=== PATIENT | female | born 1975 | race Hispanic/Latino ===

== ENCOUNTER 2025-02-01 13:22 | Emergency (ER) | payer MEDICAID, SELFPAY ==
[2025-02-01] VITALS (29 sets, daily range): BP systolic 103–136; BP diastolic 59–79; PULSE 74–101; RESP 16–32; TEMP 36.5–36.6; O2SAT 97–100; BMI 27.5
--- NOTE | 2025-02-01 13:25 | DI.RAD.S_ITS ---
PROCEDURE: XR CHEST 1V INDICATIONS: Chest Pain TECHNIQUE: One view of the chest was acquired. COMPARISON: [facility], , CHEST 2 VIEW, 03/03/2016, 11:36. FINDINGS: Surgical changes and devices: None. Lungs and pleura: Left retrocardiac airspace opacity. Questionable left pleural effusion. No pneumothorax. Mediastinum: Mediastinal contours appear normal. Heart size is enlarged. Bones and chest wall: No suspicious bony lesions. Overlying soft tissues appear unremarkable. Left intramedullary nail of the humerus. IMPRESSION: Retrocardiac opacity concerning for pneumonia. Cardiomegaly. Dictated by: Joshua Cox M.D. on 02/01/2025 at 13:29 Approved by: Joshua Cox M.D. on 02/01/2025 at 13:31
--- NOTE | 2025-02-01 13:25 | EKG_ITS ---
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
[2025-02-01 13:44] LABS: Add Manual Diff / Slide Review NO; Basophils Absolute Auto 100 /uL (0-100); Basophils Percent Auto 1.3 % (0-2); Eosinophils Absolute Auto 0 /uL (0-450); Eosinophils Percent Auto 0.2 % (2-4); Lymphocytes Absolute Auto 1800 /uL (1100-4500); Lymphocytes Percent Auto 20.9 % (25-40); Mean Corpuscular HGB Conc 32.8 % (30-36); Mean Corpuscular Volume 73.2 fL (80-100); Monocytes Absolute Auto 500 /uL (0-900); Monocytes Percent Auto 5.9 % (3-14); Neutrophils Absolute Auto 6200 /uL (1500-7000); Neutrophils Percent Auto 71.7 % (50-75); Platelet Count 493 X10^3/uL (150-400); Red Cell Distribution Width 22.9 % (11.6-14.8); White Blood Cell Count 8.7 X10^3/uL (4.5-11.0)
[2025-02-01 13:50] LABS: INR 1.1 (0.9-1.3); Prothrombin Time 12.1 SECONDS (9.4-12.5)
[2025-02-01 13:51] LABS: Hematocrit 19.7 % (36-46); Hemoglobin 6.5 g/dL (12.0-16.0)
[2025-02-01 13:52] LABS: Lactate (Lactic Acid) 1.2 mmol/L (0.7-2.1); PTT Partial Thromboplastin Tim 28 SECONDS (25.1-36.5)
[2025-02-01 13:53] LABS: Alanine Aminotransferase 11 IU/L (<35); Albumin 2.5 g/dL (3.5-5.0); Albumin Globulin Ratio 0.7 (1.0-2.8); Alkaline Phosphatase 103 U/L (38-126); Aspartate Aminotransferase 22 IU/L (14-36); BUN Creatinine Ratio 22.7 (6-22); Bilirubin Total 0.9 mg/dL (0.2-1.3); Blood Urea Nitrogen 34 mg/dL (7-17); Carbon Dioxide 23 mmol/L (22-32); Chloride 100 mmol/L (98-107); Creatine Kinase < 20 U/L (30-135); Estimated Glomerular Filt Rate 43 mL/min (>60); Globulin 3.5 g/dL (1.7-4.1); Glucose 236 mg/dL (70-99); Lipase 165 U/L (23-300); Magnesium 1.5 mg/dL (1.6-2.3); Potassium 4.8 mmol/L (3.4-5.1); Sodium 130 mmol/L (137-145)
[2025-02-01 14:03] LABS: HEMOLYSIS 51 (0-50)
[2025-02-01 14:05] LABS: NT-proBNP (BNP-Adult 18+) 8330 pg/mL (<125); Troponin I < 0.012 ng/mL (0.01-0.034)
--- NOTE | 2025-02-01 14:16 | PC.NURSE ---
Addendum entered by Cinthia Bobby R.N. 02/01/25 14:21: Lips pale. Original Note: Pt reports 3 days of CP and palpitations. Pt reports the CP started when she was sitting. Pt reports she was in [place] when was had high blood pressure and they wanted to do a catheritization; however due to pt only having one kidney/poor kidney function they decided to withhold. Pt reports she was first diagnosed with kidney cancer in 2016. Pt reports cancer has metastasized to liver and pancreas. Pt is on insulin to treat diabetes. Pt states she has had no known fevers. Pt reports history of 5 blood transfusions. Pt states she is waiting to be treated w/ immunotherapy. Reported increased weakness at home. Pt has been using wheelchair at home. Denies upper back pain. Family and Major [employer] #[id number]
--- NOTE | 2025-02-01 14:20 | ED.CHESTPAIN ---
HPI - Chest Pain General Chief Complaint: Chest Pain Stated Complaint: Chest Pain Time Seen by Provider: 02/01/25 13:53 History of Present Illness HPI narrative: Patient is a 49-year-old female speaking but has family for interpretive interpretive services were offered but declined. Presenting today with left-sided chest. Patient has significant history of metastatic clear cell renal carcinoma. Initially diagnosed in 2016 has had a left humerus replacement due to metastatic disease as well as a left nephrectomy. She has had intermittent follow up over that time living in both [place] and [place]. Presenting today with left-sided chest pain and shortness of breath. She was previously admitted to [facility] January 06 through January 13. During that time she was found to be in DKA placed on an insulin drip. She was found to have extensive metastatic disease throughout abdominal wall muscles peritoneum and pancreatic tail. Oncology was consulted given extensive metastatic disease and microcytic anemia requiring blood transfusion patient is to begin immunotherapy however currently waiting insurance approval Patient reports that today she had some left-sided chest pain no significant shortness of breath. She has had progressive ongoing weakness which family says is getting even worse. She denies any significant shortness of breath. No significant abdominal pain nausea vomiting or other symptoms. She does have some lower extremity edema which family notes as well. Related Data Allergies Allergy/AdvReac Type Severity Reaction Status Date / Time No Known Drug Allergies Allergy Verified 02/01/25 14:11 Exam Initial Vital Signs Initial Vital Signs: Vital Signs Pulse Rate 94 H 02/01/25 13:26 Pulse Oximetry 100 02/01/25 13:26 GENERAL: Pale alert 49-year-old female and in no acute distress. HEENT: Head atraumatic,EOMI, pupils reactive, face symmetric, moist mucous membranes CARDIOVASCULAR: Regular rate and rhythm without murmurs, rubs or gallops. RESPIRATORY: Breath sounds equal bilaterally, no wheezes rales or rhonchi. ABDOMEN: Soft, nontender. Normoactive bowel sounds all 4 quadrants. No guarding or rebound. : No CVA tenderness EXTREMITIES: Normal range of motion, no clubbing or edema. Neurovascularly intact NEUROLOGICAL: Alert and oriented x4.Normal gait and speech. Cranial nerves II through XII grossly intact. SKIN: Warm, dry, no laceration, no petechiae, no rashes or lesions. Procedures [facility] [place] Name of Procedure: Thoracentesis, therapeutic and diagnostic Location: Left side Technique/Description of procedure performed: Thoracentesis Indication: Large left pleural effusion Consent signed A time-out was completed verifying correct patient, procedure, site, positioning, and special equipment if applicable. The patient?s left side was prepped and draped in a sterile manner after the appropriate infiltration level was confirmed by ultrasound. 1% lidocaine was used anesthetize the surrounding skin. A finder needle was then used to locate fluid and clear yellow fluid was obtained. A 18 gauge needle used to make larger hole. The thoracentesis catheter was then threaded without difficulty. The patient had 700 of bloody serosanguineous fluid removed.A post-procedure chest x-ray was ordered and the fluid will be sent for several studies. Estimated Blood Loss: 0 The patient tolerated the procedure well and there were no complications. Patient tolerated procedure: Well and No complications Course Orders Ordered: ED Orders 02/01/25 13:25 XR chest 1V Stat EKG-12 Lead Stat RT Consult Eval and Treat NOW 02/01/25 13:30 Complete Blood Count AUTO DIFF Stat Comprehensive Metabolic Panel Stat Lactate (Lactic Acid) Stat Lipase Stat Magnesium Stat NT-proBNP (BNP-Adult 18+) Stat PTT Partial Thromboplastin Rajesh Stat Prothrombin Time INR Stat Troponin & CK Cardiac Panel Stat 02/01/25 14:09 PRBC [Packed Cells] Stat Type and Screen Stat 02/01/25 14:37 CT abdomen pelvis w con Stat CT angio chest PE protocol Stat 02/01/25 15:32 US chest Stat XR chest 1V Stat 02/01/25 17:33 Body Fluid Culture Urgent Cell Count w Diff Body Fluid Urgent Discontinued Medications Lidocaine/Epinephrine (Lidocaine 1% W/Epi 10ml) 1 ml SUBCUT NOW ONE Stop: 02/01/25 16:51 Last Admin: 02/01/25 17:46 Dose: 1 ml Documented By: MYRON Vital Signs Vital signs: Vital Signs - 8 hr 02/01/25 13:26 02/01/25 13:27 02/01/25 13:27 Temperature Pulse Rate 94 H 93 H Respiratory Rate 17 Blood Pressure 117/65 Pulse Oximetry 100 99 Oxygen Delivery Method 02/01/25 13:30 02/01/25 13:30 02/01/25 14:00 Temperature 97.7 F Pulse Rate 74 94 H 92 H Respiratory Rate 16 19 Blood Pressure 117/65 Pulse Oximetry 97 99 100 Oxygen Delivery Method Room Air 02/01/25 14:30 02/01/25 15:11 02/01/25 15:26 Temperature 97.9 F Pulse Rate 91 H 94 H 90 Respiratory Rate 18 19 Blood Pressure 103/59 L Pulse Oximetry 100 99 Oxygen Delivery Method 02/01/25 15:26 02/01/25 15:26 02/01/25 15:30 Temperature Pulse Rate 90 Respiratory Rate 22 Blood Pressure 103/59 L 110/64 Pulse Oximetry 100 Oxygen Delivery Method 02/01/25 15:30 02/01/25 15:45 02/01/25 15:50 Temperature 97.8 F Pulse Rate 91 H 91 H Respiratory Rate 23 16 Blood Pressure 114/67 114/67 Pulse Oximetry 100 Oxygen Delivery Method 02/01/25 15:50 02/01/25 16:00 02/01/25 16:00 Temperature Pulse Rate 91 H 91 H Respiratory Rate 21 Blood Pressure 107/72 Pulse Oximetry 100 100 Oxygen Delivery Method 02/01/25 16:15 02/01/25 16:15 02/01/25 16:30 Temperature Pulse Rate 92 H 91 H Respiratory Rate 20 18 Blood Pressure 118/72 Pulse Oximetry 100 100 Oxygen Delivery Method 02/01/25 16:30 02/01/25 16:45 02/01/25 16:45 Temperature Pulse Rate 90 Respiratory Rate 26 H Blood Pressure 128/78 122/73 Pulse Oximetry 100 Oxygen Delivery Method 02/01/25 17:00 02/01/25 17:00 02/01/25 17:15 Temperature Pulse Rate 90 Respiratory Rate 27 H Blood Pressure 128/77 121/70 Pulse Oximetry 100 Oxygen Delivery Method 02/01/25 17:15 02/01/25 17:20 02/01/25 17:20 Temperature Pulse Rate 97 H 99 H Respiratory Rate 32 H 32 H Blood Pressure 119/74 Pulse Oximetry 99 100 Oxygen Delivery Method 02/01/25 17:25 02/01/25 17:25 02/01/25 17:30 Temperature Pulse Rate 101 H Respiratory Rate 23 Blood Pressure 120/71 124/74 Pulse Oximetry 100 Oxygen Delivery Method 02/01/25 17:30 02/01/25 17:35 02/01/25 17:35 Temperature Pulse Rate 97 H 97 H Respiratory Rate 24 Blood Pressure 112/71 Pulse Oximetry 100 99 Oxygen Delivery Method MDM - Chest Pain Lab Data 02/01/25 13:30 02/01/25 13:30 Labs: Lab Results 02/01/25 02/01/25 Range/Units 13:30 14:09 WBC 8.7 (4.5-11.0) X10^3/uL RBC 2.70 L (4.0-5.2) X10^6/uL Hgb 6.5 L* (12.0-16.0) g/dL Hct 19.7 L* (36-46) % MCV 73.2 L (80-100) fL MCH 24.0 L (26-34) PG MCHC 32.8 (30-36) % RDW 22.9 H (11.6-14.8) % Plt Count 493 H (150-400) X10^3/uL Neut % (Auto) 71.7 (50-75) % Lymph % (Auto) 20.9 L (25-40) % Iron % (Auto) 5.9 (3-14) % Eos % (Auto) 0.2 L (2-4) % Baso % (Auto) 1.3 (0-2) % Neut # (Auto) 6200 (8250-5122) /uL Lymph # (Auto) 1800 (0179-5125) /uL Iron # (Auto) 500 (0-900) /uL Eos # (Auto) 0 (0-450) /uL Baso # (Auto) 100 (0-100) /uL RBC Morphology See below Anisocytosis 1+ H Microcytosis 1+ H PT 12.1 (9.4-12.5) SECONDS INR 1.1 (0.9-1.3) APTT 28 (25.1-36.5) SECONDS Sodium 130 L (137-145) mmol/L Potassium 4.8 (3.4-5.1) mmol/L Chloride 100 (98-107) mmol/L Carbon Dioxide 23 (22-32) mmol/L BUN 34 H (7-17) mg/dL Creatinine 1.50 H (0.52-1.04) mg/dL Estimated GFR 43 L (>60) mL/min BUN/Creatinine Ratio 22.7 H (6-22) Glucose 236 H (70-99) mg/dL Lactate 1.2 (0.7-2.1) mmol/L Calcium 8.0 L (8.4-10.2) mg/dL Magnesium 1.5 L (1.6-2.3) mg/dL Total Bilirubin 0.9 (0.2-1.3) mg/dL AST 22 (14-36) IU/L ALT 11 (<35) IU/L Alkaline Phosphatase 103 (38-126) U/L Total Creatine Kinase < 20 L (30-135) U/L Troponin I < 0.012 (0.01-0.034) ng/mL NT-Pro-B Natriuret Pep 8330 H (<125) pg/mL Total Protein 6.0 L (6.3-8.2) g/dL Albumin 2.5 L (3.5-5.0) g/dL Globulin 3.5 (1.7-4.1) g/dL Albumin/Globulin Ratio 0.7 L (1.0-2.8) Lipase 165 (23-300) U/L Blood Type A Positive Antibody Screen Negative Crossmatch See Detail Imaging Data Chest x-ray: Radiologist's Impression: PROCEDURE: XR CHEST 1V INDICATIONS: Chest Pain TECHNIQUE: One view of the chest was acquired. COMPARISON: [facility], CHEST 2 VIEW, 03/03/2016, 11:36. FINDINGS: Surgical changes and devices: None. Lungs and pleura: Left retrocardiac airspace opacity. Questionable left pleural effusion. No pneumothorax. Mediastinum: Mediastinal contours appear normal. Heart size is enlarged. Bones and chest wall: No suspicious bony lesions. Overlying soft tissues appear unremarkable. Left intramedullary nail of the humerus. IMPRESSION: Retrocardiac opacity concerning for pneumonia. Cardiomegaly. Dictated by: Joshua Cox M.D. on 02/01/2025 at 13:29 Approved by: Joshua Cox M.D. on 02/01/2025 at 13:31 ECG Data Attestation: I personally reviewed and interpreted this ECG as follows: Prior ECG tracings: not available for review Interpretation: Sinus rhythm rate 92 MN interval 116 QRS [address] changes or T-wave inversion MDM Narrative Medical decision making narrative: MDM CC: Weakness chest pain Complicating co-morbidities: Metastatic renal cell carcinoma chronic anemia chronic kidney disease Data collected from: Family Medical records reviewed: [facility] admission discharge diagnosis Microcytic anemia hemoglobin 6.7 on admission MCV 72, thought that chronic renal disease is a large component was started on EPO as well KOKO on CKD had a creatinine of 2.0 BUN 59.9 which did improve during her admission Metastatic clear cell carcinoma evaluated by Oncology he was a candidate for immunotherapy nivolumab and ipilimumab Pseudo hyponatremia with a sodium of 122 corrected to 133 with hyperglycemia Ongoing weakness deconditioning thought to be secondary to malignancy Elevated lipase 506 Had DKA as well. Differential considered: Anemia mass pulmonary embolus ACS Exam documented above, pertinent findings include: Pale alert 49-year-old female very weak. Chest pain is nonreproducible lung sounds are clear abdomen is soft and nontender Lab Test results independently reviewed as above. Pertinent findings: Hemoglobin 6.5 hematocrit 19.7 Creatinine 1.5 Troponin negative, BNP 8330 Independently reviewed EKG as above No ischemia Imaging studies independently reviewed: Chest x-ray retrocardiac opacity concerning for pneumonia CT angio no pulmonary embolus progressing metastatic disease. Left basilar mass measuring 5.3 cm right apical nodule 2.3 cm with surrounding satellite nodules, large left pleural effusion small right pleural effusion CT abdomen pelvis metastatic disease involving lung pancreas psoas muscle gluteal soft tissues left rib mesenteric possible lymph nodes hepatomegaly splenomegaly moderate ascites Ultrasound area bah for thoracentesis Chest x-ray decreased pleural effusion without pneumothorax Treatments: 1 unit packed red blood cells, thoracentesis Re-evaluations: Patient had 700 cc of pleural fluid removed. It was sent for cytology and further evaluation. Discussion: Patient is a 49-year-old female who has metastatic clear cell carcinoma with chronic anemia presenting today with increasing weakness. She was found to be anemic again with a hemoglobin of 6.5 and hematocrit of 19.7. According to previous notes the goal is to have hemoglobin greater than 7. She was transfused 1 unit of packed red blood cells. She also has a new left-sided pleural effusion. She is not hypotensive or hypoxic. However thoracentesis is done fluid sent for cytology and evaluation presumed metastatic and cancerous. She tolerated the procedure well. Patient has ongoing fatigue and weakness is likely secondary to chronic anemia and cancer. No evidence of infection. Discussion with patient and family if she wants to be admitted to the hospital versus going home. At this time patient would like to go home. Recommend outpatient follow-up with Oncology. Cause of left-sided chest pain is likely secondary to malignancy. Possible pleural effusion versus lung mass versus metastatic disease to the ribs. I think much less likely related to ACS. Discharge Plan Departure Patient Disposition: Home Clinical Impression: Anemia, Pleural effusion, Metastatic clear cell carcinoma of kidney Instructions: Pleural Effusion Activity Restrictions/Additional Instructions: *You have been diagnosed with left pleural effusion *What to do: At this time you have fluid on your lung it was likely related to a cancer. You are also anemic he received 1 unit of blood today. Please call Oncology tomorrow to schedule for follow-up will need repeat blood work *Continue to take medications as directed *Follow up with your primary care provider in 2-3 days or call [phone] Genao office tomorrow *Return to ER if you should have increasing chest pain shortness of breath [or] any new, worsening or concerning symptoms Referrals: Gregorio Beckwith MD [Primary Care Provider] - Cuauhtemoc Genao MD [Physician] - Stand Alone Forms: Patient Portal/API/Survey
[2025-02-01 14:28] LABS: Anisocytosis 1+; Microcytosis 1+
--- NOTE | 2025-02-01 14:37 | DI.CT.S_ITS ---
PROCEDURE: CT ANGIO CHEST PE PROTOCOL INDICATIONS: chest pain, with metastatic renal cell CA TECHNIQUE: After the administration of intravenous contrast, 2 mm thick sections acquired from the pulmonary apices to the posterior costophrenic angles. 3-dimensional maximum intensity projection (MIP) coronal and sagittal reformats were then acquired through the thorax. For radiation dose reduction, the following was used: automated exposure control, adjustment of mA and/or kV according to patient size. COMPARISON: [facility], CT, CT ANGIO CHEST PE, 01/06/2025, 3:00. FINDINGS: Image quality: Diagnostic. Pulmonary arteries: Pulmonary arteries are normal in size, and demonstrate no intraluminal filling defects to suggest central pulmonary embolism. Lower Neck: No enlarged lymph nodes. Thyroid: No thyroid nodules which require sonographic follow up, per consensus guidelines. Axillae: No enlarged lymph nodes. Chest Wall: Left chest wall mass involving the 9th rib measuring 7.3 cm. Left flank superficial soft tissue mass measuring 1.3 cm axial image 82. . Lungs and Pleura: No pneumothorax or pleural effusions. Left basilar mass measuring 5.3 cm.. Right apical nodule measuring 2.3 cm. With surrounding satellite nodules. Large left effusion. Small right effusion. Heart: Heart size is normal. No pericardial effusion. Thoracic Vessels: No aortic aneurysm. Mediastinum and Brissa: Left hilar lymphadenopathy. Esophagus: No wall thickening. No hiatal hernia. Upper Abdomen: See separate CT for abdominal evaluation. IMPRESSION: No pulmonary embolus. Progressing metastatic disease. Dictated by: Joshua Cox M.D. on 02/01/2025 at 15:24 Approved by: Joshua Cox M.D. on 02/01/2025 at 15:31
--- NOTE | 2025-02-01 14:37 | DI.CT.S_ITS ---
PROCEDURE: CT ABDOMEN PELVIS W CON INDICATIONS: Metastatic renal cell carcinoma TECHNIQUE: After the administration of intravenous contrast, axial sections acquired from the lung bases to the pubic symphysis. Coronal and sagittal reformats were performed. For radiation dose reduction, the following was used: automated exposure control, adjustment of mA and/or kV according to patient size. COMPARISON: [facility], CT, CT ABDOMEN PELVIS WITH CONTRAST, 01/06/2025, 3:00. FINDINGS: Image quality: Diagnostic. Lower Chest: Partially imaged left lower lobe heterogeneous mass measuring 6.8 cm with surrounding pleural effusion. Left chest wall mass involving the 9th rib measuring 7.7 cm. ABDOMEN: Liver: No solid mass. Hepatomegaly Gallbladder: Innumerable gallstones. Biliary ducts: No biliary dilation. Pancreas: No ductal dilation. The tail of the pancreas is invaded by a large mass measuring 6.1 x 6 x 7.4 cm Spleen: Splenomegaly. A few hypodensities Adrenal Glands: The right adrenal gland is not identified. Normal left adrenal gland Kidneys and Ureters: The right kidney is absent. Stomach and Bowel: No bowel obstruction. Peritoneum: Moderate ascites. Mild anasarca. Right mesenteric soft tissue mass measuring 2.5 cm Ventral Wall: No significant ventral hernia. Abdominal Nodes: A few prominent periaortic lymph nodes. Vessels: Aorta and inferior vena cava are normal in size. PELVIS: Pelvic Organs: Unremarkable. Bladder: Densities on the posterior wall of the bladder Pelvic Nodes: No enlarged lymph nodes. Miscellaneous: No inguinal hernias are seen. Bones: No aggressive osseous abnormality. Soft tissue: Left gluteal mass measuring 4.5 cm. Left psoas mass measuring 3.3 cm IMPRESSION: 1. Metastatic disease involving the lung, pancreas, psoas muscle, gluteal soft tissues, left ribs, mesenteric, and possible lymph nodes and possible lymph nodes. 2. Hepatomegaly and splenomegaly . 3. Moderate ascites. 4. Mild to moderate anasarca. Dictated by: Joshua Cox M.D. on 02/01/2025 at 15:09 Approved by: Joshua Cox M.D. on 02/01/2025 at 15:23
--- NOTE | 2025-02-01 15:32 | DI.RAD.S_ITS ---
PROCEDURE: XR CHEST 1V INDICATIONS: post-thoracentesis TECHNIQUE: One view of the chest was acquired. COMPARISON: [facility], CT, CT ANGIO CHEST PE PROTOCOL, 02/01/2025, 14:45. [facility], CR, XR CHEST 1V, 02/01/2025, 13:42. FINDINGS: Surgical changes and devices: None. Lungs and pleura: Improved aeration of the left lower lobe. Persistent retrocardiac opacity consistent with known pulmonary mass. Right a buccal mass is better seen on comparison CT. No pneumothorax. Mediastinum: Mediastinal contours appear normal. Heart size is normal. Bones and chest wall: No suspicious bony lesions. Overlying soft tissues appear unremarkable. IMPRESSION: Decreased left effusion without pneumothorax. Dictated by: Joshua Cox M.D. on 02/01/2025 at 16:58 Approved by: Joshua Cox M.D. on 02/01/2025 at 17:01
--- NOTE | 2025-02-01 15:32 | DI.US.S_ITS ---
PROCEDURE: US CHEST COMPARISON: [facility], CT, CT ANGIO CHEST PE PROTOCOL, 02/01/2025, 14:45. [facility], CT, CT ABDOMEN PELVIS W CON, 02/01/2025, 14:45. INDICATIONS: tatyana for thora FINDINGS: Beneath the area marked by the company secretary, there is a pleural effusion with the center of the fluid collection measuring 5.3 cm from the skin. IMPRESSION: Appropriate location for a left chest wall thoracentesis. Dictated by: Joshua Cox M.D. on 02/01/2025 at 16:18 Approved by: Joshua Cox M.D. on 02/01/2025 at 16:22
[2025-02-01] MEDS: LIDOCAINE 1% W/EPI 10ML SUBCUT (17:46)
[2025-02-01 18:14] LABS: Body Fluid Red Blood Cells 210609 /uL; Body Fluid Tot Nucleated Cells 560 /uL
[2025-02-01 18:19] LABS: Body Fluid Appearance TURBID; Body Fluid Clotted? NO CLOTS PRESENT; Body Fluid Color RED
--- NOTE | 2025-02-01 18:39 | PC.NURSE ---
More color to pt face. Pt states she breathes easier. Pt able to stand and walk a couple of feet. Pt reports improvement in symptoms.
[2025-02-01 18:45] LABS: Lymphocytes Body Fluid 79 %; MESO/MACRO/MONO Body Fluid 16 %; Neutrophils Body Fluid 5 %
== END 2025-02-01 18:42 | disposition home or self-care (01) ==
PROVIDERS: Emergency Provider Emergency Medicine; PCP Family Medicine
DX: C64.2 Malignant neoplasm of left kidney, except renal pelvis (principal); R07.9 Chest pain, unspecified; J90 Pleural effusion, not elsewhere classified; C79.9 Secondary malignant neoplasm of unspecified site; D63.0 Anemia in neoplastic disease; Z90.5 Acquired absence of kidney
CPT/HCPCS: 32555; 36415; 36430; 71045; 71275; 74177; 76604; 80053; 82550; 83605; 83690; 83735; 83880; 84484; 85025; 85610; 85730; 86850; 86900; 86901; 87070; 87075; 87205; 89051; 93005; 93010; 99284; 99285; P9016; Q9967

== ENCOUNTER 2025-02-05 02:02 | Emergency (ER) | payer MEDICAID, SELFPAY ==
[2025-02-05] VITALS (13 sets, daily range): BP systolic 86–117; BP diastolic 56–68; PULSE 85–133; RESP 13–20; TEMP 36.7; O2SAT 98–100; BMI 23.3
--- NOTE | 2025-02-05 02:49 | DI.RAD.S_ITS ---
PROCEDURE: XR CHEST 1V INDICATIONS: suspected sepsis TECHNIQUE: One view of the chest was acquired. COMPARISON: [facility], CR, XR CHEST 1V, 02/01/2025, 17:26. FINDINGS: Surgical changes and devices: None. Lungs and pleura: Small left pleural effusion and left basilar atelectasis. No pneumothorax. Right lung is clear. Mediastinum: Mediastinal contours appear normal. Heart size is enlarged. Bones and chest wall: No suspicious bony lesions. Overlying soft tissues appear unremarkable. IMPRESSION: Small left pleural effusion with left basilar small infiltrate/atelectasis. No pneumothorax. Clinical correlation and follow-up is recommended. No discrepancies. Dictated by: Pradeep Jimenez M.D. on 02/05/2025 at 8:20 Approved by: Pradeep Jimenez M.D. on 02/05/2025 at 8:21
[2025-02-05] MEDS: SODIUM CHLORIDE 0.9% 1,000 ML 1000 ML IV ×2 (02:54→03:56)
[2025-02-05 03:05] LABS: Add Manual Diff / Slide Review NO; Basophils Absolute Auto 100 /uL (0-100); Basophils Percent Auto 0.7 % (0-2); Eosinophils Absolute Auto 0 /uL (0-450); Hemoglobin 7.9 g/dL (12.0-16.0); Lymphocytes Absolute Auto 1200 /uL (1100-4500); Lymphocytes Percent Auto 10.1 % (25-40); Mean Corpuscular HGB Conc 31.7 % (30-36); Mean Corpuscular Hemoglobin 24.6 PG (26-34); Mean Corpuscular Volume 77.5 fL (80-100); Monocytes Absolute Auto 800 /uL (0-900); Monocytes Percent Auto 6.6 % (3-14); Neutrophils Absolute Auto 9600 /uL (1500-7000); Neutrophils Percent Auto 82.6 % (50-75); Platelet Count 540 X10^3/uL (150-400); Red Blood Cell Count 3.22 X10^6/uL (4.0-5.2); Red Cell Distribution Width 23.5 % (11.6-14.8); White Blood Cell Count 11.6 X10^3/uL (4.5-11.0)
--- NOTE | 2025-02-05 03:08 | EKG_ITS ---
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
[2025-02-05 03:13] LABS: INR 1.1 (0.9-1.3); Prothrombin Time 11.9 SECONDS (9.4-12.5)
--- NOTE | 2025-02-05 03:14 | ED_ITS ---
HPI - Fever General Chief Complaint: Fever Stated Complaint: fever after chemo today Time Seen by Provider: 02/05/25 02:45 Source: family Mode of arrival: Wheelchair History of Present Illness HPI Narrative: 49-year-old female Vietnamese speaking, translation services offered, declined by patient with family translation at bedside. 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 Genao, awaiting Port-A-Cath placement, yesterday 02/04/2025 morning had 1st round of Opdivo chemotherapy. Subsequently last few hours patient feels feverish. She denies cough, shortness of breath, chest pain, new abdominal pain. No skin rashes. No painful or frequent urination. No vomiting. No headache. Related Data Previous Rx's Medication Instructions Recorded cefdinir 300 mg capsule 300 mg PO BID 10 days #20 caps 02/05/25 doxycycline hyclate 100 mg capsule 100 mg PO BID #20 caps 02/05/25 Allergies Allergy/AdvReac Type Severity Reaction Status Date / Time No Known Drug Allergies Allergy Verified 02/01/25 14:11 Exam Narrative Exam Narrative: GENERAL: Well-developed patient, in mild distress. HEAD: Atraumatic. Normocephalic. EYES: Pupils equal round and reactive. Extraocular motions intact. No scleral icterus. No injection or drainage. ENT: Nose without bleeding, purulent drainage. Throat without erythema, tonsillar hypertrophy or exudate. Airway patent. NECK: Trachea midline. Non tender CARDIOVASCULAR: Fast rate regular rhythm, without murmurs, gallops, or rubs. RESPIRATORY: Clear to auscultation. Breath sounds equal bilaterally. No wheezes, rales, or rhonchi. No chest wall Port-A-Cath obvious. GASTROINTESTINAL: Abdomen soft, non-tender, nondistended. Right mid upper quadrant horizontal well-healed scar, her previous right nephrectomy scar, no obvious incisional hernia. EXTREMITIES: No edema or joint tenderness. BACK: Nontender without deformity or crepitance. No flank tenderness. NEURO: AOx3. Motor functions grossly nonfocal SKIN: No rash or erythema of visible areas Initial Vital Signs Initial Vital Signs: Vital Signs Temperature 98.1 F 02/05/25 02:23 Pulse Rate 133 H 02/05/25 02:23 Respiratory Rate 16 05/08/25 02:23 Blood Pressure 101/57 L 02/05/25 02:23 Pulse Oximetry 98 02/05/25 02:23 Oxygen Delivery Method Room Air 02/05/25 02:23 Course Orders Ordered: Discontinued Medications Doxycycline Hyclate (Doxycycline Hyclate 100 Mg Tablet) 100 mg PO NOW ONE Stop: 02/05/25 03:37 Last Admin: 02/05/25 03:53 Dose: 100 mg Documented By: SHARA Sodium Chloride (Normal Saline 0.9%) 1,000 mls @ 1,000 mls/hr IV BOLUS ONE Stop: 02/05/25 03:48 Last Infusion: 02/05/25 04:04 Dose: Infused Documented By: Admin: 02/05/25 02:54 Dose: 1,000 mls/hr Documented By: SHARA Sodium Chloride (Normal Saline 0.9%) 1,000 mls @ 1,000 mls/hr IV BOLUS ONE Stop: 02/05/25 03:58 Last Infusion: 02/05/25 05:41 Dose: Infused Documented By: Admin: 02/05/25 03:56 Dose: 1,000 mls/hr Documented By: SHARA Ceftriaxone Sodium 1,000 mg/ (Sodium Chloride) 100 mls @ 200 mls/hr IV NOW ONE Stop: 02/05/25 03:37 Last Infusion: 02/05/25 04:49 Dose: Infused Documented By: Admin: 02/05/25 03:52 Dose: 200 mls/hr Documented By: SHARA Ondansetron HCl (Ondansetron 4 Mg/2 Ml Inj) 4 mg IV NOW PRN PRN Reason: Nausea And Vomiting Ondansetron HCl (Ondansetron 4 Mg Odt) 4 mg PO NOW PRN PRN Reason: Nausea And Vomiting Vital Signs Vital signs: Vital Signs - 8 hr 02/05/25 02:23 02/05/25 02:34 02/05/25 02:35 Temperature 98.1 F Pulse Rate 133 H 127 H 125 H Respiratory Rate 16 Blood Pressure 101/57 L Pulse Oximetry 98 99 99 Oxygen Delivery Method Room Air 02/05/25 02:35 02/05/25 02:40 02/05/25 02:40 Temperature Pulse Rate 120 H Respiratory Rate 18 Blood Pressure 90/57 L 86/56 L Pulse Oximetry 99 Oxygen Delivery Method 02/05/25 03:00 02/05/25 03:00 02/05/25 03:30 Temperature Pulse Rate 113 H Respiratory Rate Blood Pressure 89/57 L 98/59 L Pulse Oximetry 99 Oxygen Delivery Method 02/05/25 03:30 02/05/25 04:00 02/05/25 04:00 Temperature Pulse Rate 96 H 95 H Respiratory Rate 19 13 Blood Pressure 111/66 Pulse Oximetry 100 100 Oxygen Delivery Method 02/05/25 04:30 02/05/25 04:30 02/05/25 05:00 Temperature Pulse Rate 91 H Respiratory Rate 16 Blood Pressure 113/65 112/67 Pulse Oximetry 100 Oxygen Delivery Method 02/05/25 05:00 02/05/25 05:29 02/05/25 05:30 Temperature Pulse Rate 87 85 Respiratory Rate 15 16 Blood Pressure 117/68 Pulse Oximetry 100 100 Oxygen Delivery Method MDM - Fever Lab Data Attestation: I reviewed the patient's lab results. Lab results narrative: White blood cell count 87445, hemoglobin 7.9, platelets 540,000. Initial BUN/Cr = 33/1.89 increased from prior studies. IV fluids given, repeat BUN/Cr 32/1.78 some improvement. Alkaline phosphatase slight elevation, other liver functions normal. Procalcitonin elevated. Lactate 1.1 not elevated. 02/05/25 02:45 02/05/25 05:37 Labs: Lab Results 02/05/25 02/05/25 Range/Units 02:45 05:37 WBC 11.6 H (4.5-11.0) X10^3/uL RBC 3.22 L (4.0-5.2) X10^6/uL Hgb 7.9 L (12.0-16.0) g/dL Hct 25.0 L (36-46) % MCV 77.5 L D (80-100) fL MCH 24.6 L (26-34) PG MCHC 31.7 (30-36) % RDW 23.5 H (11.6-14.8) % Plt Count 540 H (150-400) X10^3/uL Neut % (Auto) 82.6 H (50-75) % Lymph % (Auto) 10.1 L (25-40) % [place] % (Auto) 6.6 (3-14) % Eos % (Auto) 0.0 L (2-4) % Baso % (Auto) 0.7 (0-2) % Neut # (Auto) 9600 H (9899-3188) /uL Lymph # (Auto) 1200 (4168-4381) /uL [place] # (Auto) 800 (0-900) /uL Eos # (Auto) 0 (0-450) /uL Baso # (Auto) 100 (0-100) /uL Platelet Estimate Increased on smear RBC Morphology See below Anisocytosis 2+ H Microcytosis 2+ H Ovalocytes 1+ H PT 11.9 (9.4-12.5) SECONDS INR 1.1 (0.9-1.3) APTT 28 (25.1-36.5) SECONDS Sodium 134 L 134 L (137-145) mmol/L Potassium 4.0 3.7 (3.4-5.1) mmol/L Chloride 104 106 (98-107) mmol/L Carbon Dioxide 16 L 18 L (22-32) mmol/L BUN 33 H 32 H (7-17) mg/dL Creatinine 1.89 H 1.78 H (0.52-1.04) mg/dL Estimated GFR 32 L 35 L (>60) mL/min BUN/Creatinine Ratio 17.5 18.0 (6-22) Glucose 201 H 188 H (70-99) mg/dL Lactate 1.1 (0.7-2.1) mmol/L Calcium 8.2 L 7.4 L (8.4-10.2) mg/dL Total Bilirubin 1.1 (0.2-1.3) mg/dL AST 26 (14-36) IU/L ALT 12 (<35) IU/L Alkaline Phosphatase 165 H D (38-126) U/L Total Creatine Kinase < 20 L (30-135) U/L Total Protein 6.3 (6.3-8.2) g/dL Albumin 2.7 L (3.5-5.0) g/dL Globulin 3.6 (1.7-4.1) g/dL Albumin/Globulin Ratio 0.8 L (1.0-2.8) Lipase 191 (23-300) U/L Procalcitonin 4.49 H (<0.5) ng/mL ECG Data Attestation: I personally reviewed and interpreted this ECG as follows: Interpretation: Sinus tachycardia with rate of 107, no obvious ST segment elevation or depression changes obvious. NJ 128, QRS 74, QTC 499. MDM Narrative Medical decision making narrative: 49-year-old female with history of diabetes mellitus, prior DKA, metastatic renal cancer stage IV, had 1st round of Opdivo chemotherapy yesterday morning, feeling feverish tonight, triage with fast heart rate, sinus tachycardia on monitor. Consider sepsis. Consider inflammatory reaction to her 1st round of chemotherapy. No anaphylactoid like findings on skin or lung exam. IV fluid bolus. Labs pending. Chest x-ray pending. Records review: Patient seen here in ED on 02/01/2025 for left-sided chest pain. Large left pleural effusion on exam/imaging, had left-sided thoracentesis, removal of 700 mL serosanguineous bloody fluid, no pneumothorax. Reference made to 02/01/2025 [facility] hospitalization, patient then had CT angio PE protocol negative, CT abdomen and pelvis showing metastatic disease. Patient had transfusion of blood 02/01/2025 1 unit packed red blood cell, 4 hemoglobin 6.5 noted. Patient discharged home. EKG today shows sinus tachycardia, no obvious ischemic changes. Chest x-ray today shows left pleural effusion and left lower lobe infiltrate. See tele radiology report. Blood cultures requested, white blood cell count 83742 not neutropenic, chest x- ray concerning for possible pneumonia, IV ceftriaxone, oral doxycycline. Blood pressure improved, heart rate normalized. Repeat basic metabolic panel shows some modest improvement in BUN/creatinine, still elevated, she has had 2 L of intravenous crystalloid, feels better, she does not want to stay any longer, she wants to go home now. Offered admission, declined. Offered further fluids/obs/Rx here in the ED, also declined. Advised to recheck her labs this Sunday. We will send prescription for oral antibiotics to her pharmacy, for pneumonia coverage, oral antibiotic cefdinir and doxycycline course. Discharged home per patient request. Discharge Plan Departure Patient Disposition: Home Clinical Impression: Pneumonia, Chest pain, KOKO (acute kidney injury), History of kidney cancer Activity Restrictions/Additional Instructions: History of metastatic kidney cancer, having just started 1st round of intravenous chemotherapy yesterday. Fast heart rate noted, with fever. Chest x-ray suspicious for left pleural effusion but smaller than previous study, also presence suspected of left lower lung pneumonia, per radiologist's report. IV antibiotics initiated for pneumonia. IV fluids given. Heart rate improved, blood pressure stable. Kidney function abnormal, likely acute kidney injury, improved some with IV fluids. We discussed further treatment as an inpatient admission, declined. We discussed further treatment in the emergency department, also declined. You felt better and wanted to go home. You were discharged home per request. Advised to continue further antibiotics by mouth, prescription antibiotics sent to your pharmacy. Take antibiotics as directed. Advised to recheck symptoms and your labs again with your regular doctor on Sunday. Return earlier to this/nearest emergency department for any change worsening symptoms or any concerns prior. Prescriptions: New cefdinir 300 mg capsule 300 mg PO BID 10 Days Qty: 20 0RF doxycycline hyclate 100 mg capsule 100 mg PO BID Qty: 20 0RF Referrals: Gregorio Beckwith MD [Primary Care Provider] - Stand Alone Forms: Patient Portal/API/Survey
[2025-02-05 03:15] LABS: PTT Partial Thromboplastin Tim 28 SECONDS (25.1-36.5)
[2025-02-05 03:33] LABS: Lactate (Lactic Acid) 1.1 mmol/L (0.7-2.1)
[2025-02-05 03:50] LABS: Anisocytosis 2+; Microcytosis 2+; Ovalocytes 1+; Platelet Estimate Increased on smear
[2025-02-05] MEDS: cefTRIAXone 1,000 MG in SODIUM CHLORIDE 0.9% 100 ML 200 MG IV (03:52)
[2025-02-05] MEDS: DOXYCYCLINE HYCLATE 100 MG TABLET PO (03:53)
[2025-02-05 04:06] LABS: Alanine Aminotransferase 12 IU/L (<35); Albumin 2.7 g/dL (3.5-5.0); Albumin Globulin Ratio 0.8 (1.0-2.8); Alkaline Phosphatase 165 U/L (38-126); Aspartate Aminotransferase 26 IU/L (14-36); BUN Creatinine Ratio 17.5 (6-22); Bilirubin Total 1.1 mg/dL (0.2-1.3); Blood Urea Nitrogen 33 mg/dL (7-17); Calcium 8.2 mg/dL (8.4-10.2); Carbon Dioxide 16 mmol/L (22-32); Chloride 104 mmol/L (98-107); Estimated Glomerular Filt Rate 32 mL/min (>60); Globulin 3.6 g/dL (1.7-4.1); Glucose 201 mg/dL (70-99); HEMOLYSIS 29 (0-50); Lipase 191 U/L (23-300); Sodium 134 mmol/L (137-145); Total Protein 6.3 g/dL (6.3-8.2)
[2025-02-05 04:23] LABS: Procalcitonin 4.49 ng/mL (<0.5)
[2025-02-05 04:42] LABS: Creatine Kinase < 20 U/L (30-135)
[2025-02-05 06:00] LABS: Blood Urea Nitrogen 32 mg/dL (7-17); Calcium 7.4 mg/dL (8.4-10.2); Carbon Dioxide 18 mmol/L (22-32); Chloride 106 mmol/L (98-107); Estimated Glomerular Filt Rate 35 mL/min (>60); Glucose 188 mg/dL (70-99); HEMOLYSIS < 15 (0-50); Potassium 3.7 mmol/L (3.4-5.1); Sodium 134 mmol/L (137-145)
== END 2025-02-05 07:01 | disposition home or self-care (01) ==
PROVIDERS: Emergency Provider Emergency Medicine; PCP Family Medicine
DX: J18.9 Pneumonia, unspecified organism (principal); R07.9 Chest pain, unspecified; N17.9 Acute kidney failure, unspecified; Z90.5 Acquired absence of kidney; R00.0 Tachycardia, unspecified; C78.02 Secondary malignant neoplasm of left lung; C78.01 Secondary malignant neoplasm of right lung; C78.89 Secondary malignant neoplasm of other digestive organs; Z85.528 Personal history of other malignant neoplasm of kidney
CPT/HCPCS: 36415; 71045; 80048; 80053; 82550; 83605; 83690; 84145; 85025; 85610; 85730; 87040; 93005; 93010; 96365; 99284; J0696

== ENCOUNTER 2025-02-12 | Emergency (ER) | payer MEDICAID, SELFPAY ==
[2025-02-12] VITALS (9 sets, daily range): BP systolic 103–119; BP diastolic 57–68; PULSE 97–108; RESP 17–26; TEMP 36.1; O2SAT 93–100; BMI 25.1
--- NOTE | 2025-02-12 00:07 | ED_ITS ---
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 Patient presents with family who is translating, did offer translation services but patient declined. States that she has been having shortness of breath over the past few days at time of evaluation by medics at home they state that they were unable to obtain the proper pulse ox therefore did place her on 4 L nasal cannula, at time of evaluation patient not requiring any supplemental oxygen, 100% on room air, not having any dyspnea, not in acute respiratory distress. She denies any other symptoms at this time. Patient does follow up with Dr. marshall at [facility] Related Data Previous Rx's Medication Instructions Recorded cefdinir 300 mg capsule 300 mg PO BID 10 days #20 caps 02/05/25 doxycycline hyclate 100 mg capsule 100 mg PO BID #20 caps 02/05/25 Allergies Allergy/AdvReac Type Severity Reaction Status Date / Time No Known Drug Allergies Allergy Verified 02/01/25 14:11 Review of Systems Review of Systems Narrative: General: Denies fever, chills, weight loss HEENT: Denies headache, eye drainage, eye irritation, head trauma, sore throat, voice change Cardiovascular: Denies any chest pain, palpitations, tachycardia Respiratory: Positive shortness of breath, denies cough wheeze stridor GI/: Denies any abdominal pain, nausea, vomiting, diarrhea, bright red blood per rectum, melanotic stools, urinary frequency, urinary retention, dysuria, hematuria MSK: Denies any joint pain, muscle pains, swelling Skin: Denies any rashes, lesions, discoloration Neuro: Denies any headache, lightheadedness, dizziness, fainting, weakness Psych: Denies SI/HI Patient History Social History Smoking Status: Never smoker Exam Narrative Exam Narrative: General: Cooperative, well-developed, not in acute distress HEENT: Normocephalic, atraumatic, PERRLA, normal sclera, eyelids normal Neck: Active full range of motion, atraumatic Chest: Normal to inspection, negative crepitus, no overlying erythema ecchymosis Respiratory: Patient requiring 4 L nasal cannula, Normal respiratory effort, not in acute respiratory distress, clear to auscultation bilaterally negative cough, wheeze, tachypnea, rhonchi, rales Cardiology: Regular rate rhythm negative gallop, murmur, rubs GI/: No tenderness to palpation, soft, non rigid, normal to inspection, exam deferred MSK: +1 pitting edema in the lower extremities, Full active range of motion in all 4 extremities, atraumatic, no tenderness to palpation of any bony prominences Skin: No rashes or lesions noted Neuro: Alert awake oriented x3, moves all 4 extremities spontaneously, cranial nerves intact, able to answer all questions appropriately follows commands appropriately Psych: Cooperative, negative suicidal or homicidal ideations Initial Vital Signs Initial Vital Signs: Vital Signs Pulse Rate 105 H 02/12/25 00:11 Respiratory Rate 24 02/12/25 00:11 Pulse Oximetry 100 02/12/25 00:11 Course Orders Ordered: ED Orders 02/12/25 00:10 XR chest 1V Stat EKG-12 Lead Stat 02/12/25 00:11 CT angio chest PE protocol Stat 02/12/25 00:40 Blood Culture Stat Complete Blood Count AUTO DIFF Stat Comprehensive Metabolic Panel Stat Lactate (Lactic Acid) Stat Lipase Stat MAG [Magnesium] Stat NT-proBNP (BNP-Adult 18+) Stat PTT Partial Thromboplastin Rajesh Stat Prothrombin Time INR Stat Respiratory Panel (Film Array) Stat Troponin & CK Cardiac Panel Stat Magnesium Sulfate (Magnesium Sulfate) 2 gm in 50 mls @ 25 mls/hr IV NOW ONE Stop: 02/12/25 03:13 Last Admin: 02/12/25 01:24 Dose: 25 mls/hr Discontinued Medications Sodium Chloride (Normal Saline 0.9%) 250 mls @ 500 mls/hr IV BOLUS ONE Stop: 02/12/25 00:38 Last Admin: 02/12/25 01:09 Dose: 500 mls/hr Documented By: JOHNATHON Vital Signs Vital signs: Vital Signs - 8 hr 02/12/25 00:11 02/12/25 00:13 02/12/25 00:13 Temperature Pulse Rate 105 H 105 H Respiratory Rate 24 25 H Blood Pressure 112/68 Pulse Oximetry 100 Oxygen Delivery Method 02/12/25 00:14 02/12/25 00:30 02/12/25 01:10 Temperature 97 F L Pulse Rate 105 H 104 H 108 H Respiratory Rate 26 H 24 22 Blood Pressure 109/60 Pulse Oximetry 98 99 Oxygen Delivery Method Room Air Room Air 02/12/25 01:11 02/12/25 01:11 02/12/25 01:30 Temperature Pulse Rate 100 H 98 H Respiratory Rate 21 17 Blood Pressure 119/62 Pulse Oximetry 93 Oxygen Delivery Method Room Air 02/12/25 01:30 Temperature Pulse Rate Respiratory Rate Blood Pressure 104/64 Pulse Oximetry Oxygen Delivery Method MDM - SOB/Dyspnea Differential Diagnosis Differential diagnosis: Likely congestive heart failure, community acquired pneumonia, pulmonary embolism and other (COVID, flu, electrolyte abnormality) Lab Data 02/12/25 00:40 02/12/25 01:25 Labs: Lab Results 02/12/25 02/12/25 Range/Units 00:40 01:25 WBC 11.0 (4.5-11.0) X10^3/uL RBC 3.27 L (4.0-5.2) X10^6/uL Hgb 8.1 L (12.0-16.0) g/dL Hct 25.3 L (36-46) % MCV 77.2 L (80-100) fL MCH 24.7 L (26-34) PG MCHC 32.0 (30-36) % RDW 23.9 H (11.6-14.8) % Plt Count 479 H (150-400) X10^3/uL Neut % (Auto) Not Reportable Lymph % (Auto) Not Reportable [place] % (Auto) Not Reportable Eos % (Auto) Not Reportable Baso % (Auto) Not Reportable Lymph # (Auto) Not Reportable [place] # (Auto) Not Reportable Baso # (Auto) Not Reportable Total Counted 100 Seg Neutrophils % 76.0 H (38-70) % Lymphocytes % (Manual) 20.0 L (25-45) % Monocytes % (Manual) 4.0 (2-11) % Neutrophils # (Manual) 8360 H (2848-1294) /uL RBC Morphology See below Hypochromasia 1+ H Anisocytosis 2+ H Microcytosis 1+ H PT 11.7 (9.4-12.5) SECONDS INR 1.0 (0.9-1.3) APTT 33 (25.1-36.5) SECONDS Sodium 130 L (137-145) mmol/L Potassium 4.3 (3.4-5.1) mmol/L Chloride 101 (98-107) mmol/L Carbon Dioxide 19 L (22-32) mmol/L BUN 36 H (7-17) mg/dL Creatinine 1.70 H (0.52-1.04) mg/dL Estimated GFR 37 L (>60) mL/min BUN/Creatinine Ratio 21.2 (6-22) Glucose 123 H (70-99) mg/dL Lactate 1.2 (0.7-2.1) mmol/L Calcium 8.3 L (8.4-10.2) mg/dL Magnesium 1.2 L (1.6-2.3) mg/dL Total Bilirubin 0.7 (0.2-1.3) mg/dL AST 12 L (14-36) IU/L ALT 9 (<35) IU/L Alkaline Phosphatase 105 D (38-126) U/L Total Creatine Kinase < 20 L (30-135) U/L Total Protein 5.5 L (6.3-8.2) g/dL Albumin 2.4 L (3.5-5.0) g/dL Globulin 3.1 (1.7-4.1) g/dL Albumin/Globulin Ratio 0.8 L (1.0-2.8) Lipase 60 D (23-300) U/L Chlamy pneumoniae PCR Not detected (Not Detect) Adenovirus (PCR) Not detected (Not Detect) B. pertussis DNA (PCR) Not detected (Not Detect) B.parapertussis DNA PCR Not detected (Not Detecte) Coronavirus OC43 (PCR) Not detected (Not Detect) Coronavirus HKU1 (PCR) Not detected (Not Detect) Coronavirus 229E (PCR) Not detected (Not Detect) SARS-CoV-2 (PCR) Not detected (Not Detecte) Coronavirus NL63 (PCR) Not detected (Not Detect) Human Metapneumovir PCR Not detected (Not Detect) Influenza Type A (PCR) Not detected (Not Detect) Influenza Type B (PCR) Not detected (Not Detect) M. pneumoniae (PCR) Not detected (Not Detect) Parainfluenza 1 (PCR) Not detected (Not Detect) Parainfluenza 2 (PCR) Not detected (Not Detect) Parainfluenza 3 (PCR) Not detected (Not Detect) Parainfluenza 4 (PCR) Not detected (Not Detect) RSV (PCR) Not detected (Not Detect) Entero/Rhino (PCR) Not detected (Not Detect) Imaging Data CT angio chest: Radiologist's Impression: [address] [address] [address] Scan Report Signed Patient: Mela Quezada MR#: [id number] : 1975 Acct:[id number] Age/Sex: 49 / F Date of Service: 02/12/25 Loc: ED Accession Number: [id number] Procedure: CT angio chest PE protocol Ordering Provider: Errol Barrett D.O. PROCEDURE: CT ANGIO CHEST PE PROTOCOL INDICATIONS: hypoxemia, hx of panreatic CA with mets TECHNIQUE: After the administration of intravenous contrast, 2 mm thick sections acquired from the pulmonary apices to the posterior costophrenic angles. 3-dimensional maximum intensity projection (MIP) coronal and sagittal reformats were then acquired through the thorax. For radiation dose reduction, the following was used: automated exposure control, adjustment of mA and/or kV according to patient size. COMPARISON: [facility], [place], CT ANGIO CHEST PE PROTOCOL, 02/01/2025, 14:45. FINDINGS: Image quality: Diagnostic. Pulmonary arteries: Suboptimal opacification of main pulmonary artery with no large filling defects to suggest central pulmonary emboli. Bilateral segmental and subsegmental pulmonary artery branches are suboptimally opacified. Lower Neck: No enlarged lymph nodes. Thyroid: No thyroid nodules which require sonographic follow up, per consensus guidelines. Axillae: No enlarged lymph nodes. Chest Wall: Generalized anasarca. Left lateral lower chest/upper abdominal wall mass is partially included on the current study and is grossly unchanged. Previously described left flank superficial soft tissue mass is also unchanged series 5, image 91. Bones: No aggressive appearing bony lesions. Lungs and Pleura: There is moderate to large left pleural effusion unchanged or slightly increased compared to previous study. Small to moderate right pleural effusion is also seen. Compressive atelectasis are noted in posterior aspect of bilateral lung guerrero. Patient's known right apical nodule is again seen measures up to 2.9 x 2.7 cm in size not significantly changed from previous study. Previously described 5.3 cm left basilar mass is not significantly changed, currently measures up to 5.8 x 4.8 cm in size. Evaluation is slightly limited due to adjacent atelectatic lungs. No pneumothorax. Linear soft tissue density is seen within right main bronchus extending to right bronchus intermedius best seen on series 6 image 96. Heart: Heart size is normal. No pericardial effusion. Thoracic Vessels: No aortic aneurysm. Mediastinum and Brissa: Prominent mediastinal and hilar lymph nodes concerning for metastatic lymphadenopathy. Esophagus: No wall thickening. No hiatal hernia. Upper Abdomen: Generalized anasarca. Not significantly changed from prior study. IMPRESSION: 1. Limited evaluation of pulmonary arteries due to suboptimal contrast opacification. No large central pulmonary emboli. Bilateral segmental and subsegmental pulmonary artery branches are not well opacified, smaller pulmonary emboli cannot be excluded. 2. Moderate to large left pleural effusion unchanged or slightly increased compared to previous study. Small right pleural effusion. Dependent atelectasis in posterior aspect of bilateral lung guerrero. Stable appearance of right upper lobe lobulated nodule and left perihilar mass. No pneumothorax. 3. Linear soft tissue density within dependent portion of right mainstem bronchus extending to right bronchus intermedius which may represent inflammatory material versus endobronchial soft tissue mass. 4. Suggestion of mediastinal and hilar lymphadenopathy likely represent metastatic disease. 5. Stable soft tissue masses in left lateral chest wall and upper abdominal wall suggestive of metastatic disease. Chest x-ray: Radiologist's Impression: [address] [address] XRay Report Signed Patient: Mela Quezada MR#: [id number] : 1975 Acct:[id number] Age/Sex: 49 / F Date of Service: 02/12/25 Loc: ED Accession Number: [id number] Procedure: XR chest 1V Ordering Provider: Errol Barrett D.O. PROCEDURE: XR CHEST 1V INDICATIONS: dyspnea TECHNIQUE: One view of the chest was acquired. COMPARISON: [facility], [place], XR CHEST 1V, 02/05/2025, 2:47. FINDINGS: Surgical changes and devices: Postsurgical changes are seen in left humeral shaft. Lungs and pleura: Small to moderate left pleural effusion slightly increased compared to previous study. No pneumothorax. Right lung is clear. Mediastinum: Mediastinal contours appear normal. Heart size is normal. Bones and chest wall: No suspicious bony lesions. Overlying soft tissues appear unremarkable. IMPRESSION: Small to moderate left pleural effusion and left basilar infiltrate/atelectasis. No pneumothorax. ECG Data Interpretation: EKG interpreted ED physician sinus 98 beats per minute QTC [address] changes no STEMI MDM Narrative Medical decision making narrative: 49-year-old female currently undergoing chemotherapy for pancreatic cancer with Mets the static disease follows with Dr. Gonzáles at [facility] presenting from home for shortness of breath, medics state patient requiring 4 L nasal cannula at time of evaluation. Here at time of evaluation patient 98% on room air. Patient did receive 1st dose of chemotherapy last week was supposed to get her port a cath tomorrow but had worsening shortness breath therefore called medics. Patient is also status post right-sided nephrectomy secondary to cancer. She is not complaining of any other symptoms. Chest x-ray did show left-sided small moderate pleural effusion with possible atelectasis versus consolidation. CTA chest stating no large central pulmonary emboli, stable/slightly increased moderate to large left-sided pleural effusion compared to previous performed on 02/02/2025. Mediastinal and hilar lymphadenopathy representing metastatic disease, along with stable soft tissue masses within the left lateral chest wall and upper abdominal wall, stable findings no acute findings. Patient's CBC without any leukocytosis, patient with baseline anemia, current hemoglobin 8.1 improved from 1 week ago at 7.9, magnesium 1.2 (2 g IV magnesium ordered for repletion), patient with creatinine at baseline 1.7, did give 250 cc fluid bolus given the fact that patient received IV contrast, patient with troponin negative, BNP slightly elevated at 6450 improved from 02/01/2025 at 8330. Viral panel negative EKG was nonischemic in nature, lab work imaging appears to be baseline/improving due to patient's chronic condition, there is no indication for administration of antibiotics further evaluation admission or transfer at this time therefore patient will be discharged home with outpatient follow up she was given strict return precautions verbalized understanding of this and agrees with the discharged home with outpatient follow up Discharge Plan Departure Patient Disposition: Home Clinical Impression: Metastatic disease, Pleural effusion on left, CKD (chronic kidney disease), Chronic anemia Activity Restrictions/Additional Instructions: Please follow up with your PCP and oncologist for your scheduled appointment Please read the discharge instructions sheet carefully and bring all papers to all doctor follow-up visits, as it may contain information that your doctor may want to see. Disease processes change and evolve, if your symptoms worsen or if you develop any new symptoms that are concerning to you please return for evaluation. Your evaluation today does not show any evidence of any life- threatening/serious illnesses requiring admission to the hospital or surgery. Please follow-up with your doctor for re-evaluation in approximately 1 day. Seek immediate medical attention for any worrisome symptoms. *If you do not have a primary care provider please contact the [facility] Resource line at [phone]. They will ask some questions about your medical history and help get you set up with a doctor in the community. Prescriptions: No Action cefdinir 300 mg capsule 300 mg PO BID 10 Days Qty: 20 0RF doxycycline hyclate 100 mg capsule 100 mg PO BID Qty: 20 0RF Referrals: Gregorio Beckiwth MD [Primary Care Provider] - Stand Alone Forms: Patient Portal/API/Survey
--- NOTE | 2025-02-12 00:10 | EKG_ITS ---
[address] [address] Test Date: 2025-02-12 Pat Name: Mela Sales Department: [facility] Room: Gender: Female Molding Manager: KIMBERLY tomlin : 1975 Requested By: Order Number: [id number] Reading MD: Shaw Luna MD Measurements Intervals [place] Rate: 98 P: 46 [place]: 136 QRS: -6 QRSD: 72 T: 56 QT: 360 QTc: 459 Interpretive Statements Normal sinus rhythm Low voltage QRS Cannot rule out Anteroseptal infarct , age undetermined Electronically Signed On 02-12-2025 7:42:02 PDT by Shaw Luna MD
--- NOTE | 2025-02-12 00:10 | DI.RAD.S_ITS ---
PROCEDURE: XR CHEST 1V INDICATIONS: dyspnea TECHNIQUE: One view of the chest was acquired. COMPARISON: [facility], CR, XR CHEST 1V, 02/05/2025, 2:47. FINDINGS: Surgical changes and devices: Postsurgical changes are seen in left humeral shaft. Lungs and pleura: Small to moderate left pleural effusion slightly increased compared to previous study. No pneumothorax. Right lung is clear. Mediastinum: Mediastinal contours appear normal. Heart size is normal. Bones and chest wall: No suspicious bony lesions. Overlying soft tissues appear unremarkable. IMPRESSION: Small to moderate left pleural effusion and left basilar infiltrate/atelectasis. No pneumothorax. Dictated by: Pradeep Jimenez M.D. on 02/12/2025 at 0:53 Approved by: Pradeep Jimenez M.D. on 02/12/2025 at 0:54
--- NOTE | 2025-02-12 00:11 | DI.CT.S_ITS ---
PROCEDURE: CT ANGIO CHEST PE PROTOCOL INDICATIONS: hypoxemia, hx of panreatic CA with mets TECHNIQUE: After the administration of intravenous contrast, 2 mm thick sections acquired from the pulmonary apices to the posterior costophrenic angles. 3-dimensional maximum intensity projection (MIP) coronal and sagittal reformats were then acquired through the thorax. For radiation dose reduction, the following was used: automated exposure control, adjustment of mA and/or kV according to patient size. COMPARISON: [facility], CT, CT ANGIO CHEST PE PROTOCOL, 02/01/2025, 14:45. FINDINGS: Image quality: Diagnostic. Pulmonary arteries: Suboptimal opacification of main pulmonary artery with no large filling defects to suggest central pulmonary emboli. Bilateral segmental and subsegmental pulmonary artery branches are suboptimally opacified. Lower Neck: No enlarged lymph nodes. Thyroid: No thyroid nodules which require sonographic follow up, per consensus guidelines. Axillae: No enlarged lymph nodes. Chest Wall: Generalized anasarca. Left lateral lower chest/upper abdominal wall mass is partially included on the current study and is grossly unchanged. Previously described left flank superficial soft tissue mass is also unchanged series 5, image 91. Bones: No aggressive appearing bony lesions. Lungs and Pleura: There is moderate to large left pleural effusion unchanged or slightly increased compared to previous study. Small to moderate right pleural effusion is also seen. Compressive atelectasis are noted in posterior aspect of bilateral lung guerrero. Patient's known right apical nodule is again seen measures up to 2.9 x 2.7 cm in size not significantly changed from previous study. Previously described 5.3 cm left basilar mass is not significantly changed, currently measures up to 5.8 x 4.8 cm in size. Evaluation is slightly limited due to adjacent atelectatic lungs. No pneumothorax. Linear soft tissue density is seen within right main bronchus extending to right bronchus intermedius best seen on series 6 image 96. Heart: Heart size is normal. No pericardial effusion. Thoracic Vessels: No aortic aneurysm. Mediastinum and Brissa: Prominent mediastinal and hilar lymph nodes concerning for metastatic lymphadenopathy. Esophagus: No wall thickening. No hiatal hernia. Upper Abdomen: Generalized anasarca. Not significantly changed from prior study. IMPRESSION: 1. Limited evaluation of pulmonary arteries due to suboptimal contrast opacification. No large central pulmonary emboli. Bilateral segmental and subsegmental pulmonary artery branches are not well opacified, smaller pulmonary emboli cannot be excluded. 2. Moderate to large left pleural effusion unchanged or slightly increased compared to previous study. Small right pleural effusion. Dependent atelectasis in posterior aspect of bilateral lung guerrero. Stable appearance of right upper lobe lobulated nodule and left perihilar mass. No pneumothorax. 3. Linear soft tissue density within dependent portion of right mainstem bronchus extending to right bronchus intermedius which may represent inflammatory material versus endobronchial soft tissue mass. 4. Suggestion of mediastinal and hilar lymphadenopathy likely represent metastatic disease. 5. Stable soft tissue masses in left lateral chest wall and upper abdominal wall suggestive of metastatic disease. Dictated by: Pradeep Jimenez M.D. on 02/12/2025 at 1:20 Approved by: Pradeep Jimenez M.D. on 02/12/2025 at 1:30
[2025-02-12 01:01] LABS: Hematocrit 25.3 % (36-46); Hemoglobin 8.1 g/dL (12.0-16.0); Mean Corpuscular Hemoglobin 24.7 PG (26-34); Mean Corpuscular Volume 77.2 fL (80-100); Platelet Count 479 X10^3/uL (150-400); Red Blood Cell Count 3.27 X10^6/uL (4.0-5.2); Red Cell Distribution Width 23.9 % (11.6-14.8)
[2025-02-12 01:06] LABS: Add Manual Diff / Slide Review YES
[2025-02-12] MEDS: SODIUM CHLORIDE 0.9% 250 ML 500 ML IV (01:09)
[2025-02-12 01:12] LABS: Magnesium 1.2 mg/dL (1.6-2.3)
[2025-02-12 01:13] LABS: Lactate (Lactic Acid) 1.2 mmol/L (0.7-2.1)
[2025-02-12 01:19] LABS: PTT Partial Thromboplastin Tim 33 SECONDS (25.1-36.5); Prothrombin Time 11.7 SECONDS (9.4-12.5)
[2025-02-12] MEDS: MAGNESIUM SULFATE 2 GM/50 ML PIGGYBACK IV (01:24)
[2025-02-12 01:33] LABS: Neutrophils Absolute Manual 8360 /uL (3000-5900); Total Cells Counted 100
[2025-02-12 01:34] LABS: Anisocytosis 2+; Hypochromasia 1+; Microcytosis 1+
[2025-02-12 01:44] LABS: Adenovirus Not Detected (Not Detect); B. parapertussis Not Detected (Not Detecte); Bordetella pertussis Not Detected (Not Detect); Chlamydophila pneumoniae Not Detected (Not Detect); Coronavirus 229E Not Detected (Not Detect); Coronavirus HKU1 Not Detected (Not Detect); Coronavirus NL 63 Not Detected (Not Detect); Coronavirus OC43 Not Detected (Not Detect); Human Metapneumovirus Not Detected (Not Detect); Human Rhinovirus/Enterovirus Not Detected (Not Detect); Influenza A Not Detected (Not Detect); Influenza B Not Detected (Not Detect); Mycoplasma pneumoniae Not Detected (Not Detect); Parainfluenza Virus 1 Not Detected (Not Detect); Parainfluenza Virus 2 Not Detected (Not Detect); Parainfluenza Virus 3 Not Detected (Not Detect); Parainfluenza Virus 4 Not Detected (Not Detect); Respiratory Syncytial Virus Not Detected (Not Detect); SARS- CoV-2 Not Detected (Not Detecte)
[2025-02-12 01:51] LABS: Alanine Aminotransferase 9 IU/L (<35); Albumin 2.4 g/dL (3.5-5.0); Albumin Globulin Ratio 0.8 (1.0-2.8); Alkaline Phosphatase 105 U/L (38-126); Aspartate Aminotransferase 12 IU/L (14-36); BUN Creatinine Ratio 21.2 (6-22); Bilirubin Total 0.7 mg/dL (0.2-1.3); Blood Urea Nitrogen 36 mg/dL (7-17); Calcium 8.3 mg/dL (8.4-10.2); Carbon Dioxide 19 mmol/L (22-32); Chloride 101 mmol/L (98-107); Creatine Kinase < 20 U/L (30-135); Estimated Glomerular Filt Rate 37 mL/min (>60); Globulin 3.1 g/dL (1.7-4.1); Glucose 123 mg/dL (70-99); HEMOLYSIS < 15 (0-50); Lipase 60 U/L (23-300); Potassium 4.3 mmol/L (3.4-5.1); Sodium 130 mmol/L (137-145); Total Protein 5.5 g/dL (6.3-8.2)
[2025-02-12 02:02] LABS: NT-proBNP (BNP-Adult 18+) 6450 pg/mL (<125); Troponin I < 0.012 ng/mL (0.01-0.034)
== END 2025-02-12 03:28 | disposition home or self-care (01) ==
PROVIDERS: Emergency Provider Student in an Organized Health Care Education/Training Program; PCP Family Medicine
DX: N18.9 Chronic kidney disease, unspecified (principal); D64.9 Anemia, unspecified; J90 Pleural effusion, not elsewhere classified; C79.9 Secondary malignant neoplasm of unspecified site; R06.00 Dyspnea, unspecified; Z85.528 Personal history of other malignant neoplasm of kidney
CPT/HCPCS: 36415; 71045; 71275; 80053; 82550; 83605; 83690; 83735; 83880; 84484; 85007; 85025; 85610; 85730; 87040; 87633; 93005; 96365; 96366; 99284; J3475; Q9967